=== PATIENT | male | born 1985 | race Caucasian/White ===

== ENCOUNTER 2020-09-07 04:23 | Emergency (ER) | payer OTHER ==
[2020-09-07 05:08] LABS: HEMOGLOBIN 14.2 gm/dl (14.0-17.5); RED BLOOD COUNT 5.13 M/UL (4.20-5.50)
[2020-09-07 05:32] LABS: BUN/CREATININE RATIO 14 (0-10)
[2020-09-07] MEDS ORDERED: ASPIRIN CHEWABL81 MG PO (08:32)
[2020-09-08 09:13] LABS: HBSAG SCREEN Negative (Negative); HEP A AB, IGM Negative (Negative); HEP B CORE AB, IGM Negative (Negative); HEP C VIRUS AB 0.2 (0.0-0.9)
== END 2020-09-07 10:55 | disposition home or self-care (01) ==
LOC: ER1 04:23
PROVIDERS: Emergency Medicine
DX: I45.6 Pre-excitation syndrome (principal); R79.89 Other specified abnormal findings of blood chemistry; I10 Essential (primary) hypertension; F17.200 Nicotine dependence, unspecified, uncomplicated
CPT/HCPCS: 71045; 80053; 80074; 81001; 82550; 82553; 83690; 83735; 83874; 84484; 85025; 85379; 93270; 96365; 99285